=== PATIENT | female | born 1990 | race Caucasian/White ===

== ENCOUNTER 2016-10-03 20:25 | Emergency (ER) | payer OTHER ==
[2016-10-03 20:31] VITALS: BP 124/73
--- NOTE | 2016-10-03 20:36 | ER Document Report ---
ED Medical Screen (RME) - General Stated Complaint: CAT BITE Notes: Patient was bitten by a cat a couple weeks ago, and is undergoing series of rabies injections. Patient has been getting them at [facility], but they are out so patient was referred here for dose due on day 14. I have greeted and performed a rapid initial assessment of this patient. A comprehensive ED assessment and evaluation of the patient, analysis of test results and completion of the medical decision making process will be conducted by additional ED providers. TRAVEL OUTSIDE OF THE [place] IN LAST 30 DAYS: No - Related Data Allergies/Adverse Reactions: No Known Allergies Allergy (Unverified 05/02/14 20:34) Physical Exam - Vital signs Vitals: Temp Pulse Resp BP Pulse Ox 98.5 F 75 18 124/73 96 10/03/16 20:29 10/03/16 20:29 10/03/16 20:29 10/03/16 20:29 10/03/16 20:29 - Skin Notes: No signs of infection noted to left index finger were Bite was. Also has some healed areas to right wrist. Course - Vital Signs Vital signs: Temp Pulse Resp BP Pulse Ox 98.5 F 75 18 124/73 96 10/03/16 20:29 10/03/16 20:29 10/03/16 20:29 10/03/16 20:29 10/03/16 20:29
[2016-10-03] MEDS ORDERED: RABIES VACCINE (PCEC)/PF 2.5 UNIT/1 ML KIT IM ONE (23:40)
--- NOTE | 2016-10-03 23:45 | ER Document Report ---
ED Animal Bite - General Chief Complaint: Cat Bite Stated Complaint: CAT BITE Time seen by provider: 23:40 Mode of Arrival: Ambulatory Information source: Patient TRAVEL OUTSIDE OF THE [place] IN LAST 30 DAYS: No - HPI Patient complains to provider of: rabies vaccine #4, Cat bite to left hand, right wrist Location of injury: [place] Severity of injury: Bitten Onset: Other - 09/17/2016 Quality of pain: No pain Type of animal: Cat Appearance of animal: Appeared well Animal's immunizations: Unknown Animal captured or known: No Notes: Patient is a 26-year-old female who presents to the emergency room requesting rabies vaccine #4, states she was previously treated at [facility] on 2016, and received her tetanus vaccination, as well as rabies immunoglobulin and vaccine, she is also had rabies vaccine #2 and #3 on days 3 and 7, however when she reported to [facility] to get her fourth shot in the series today and she was told that they have run out of the vaccine, therefore she came to this emergency room for treatment, she recently finished a course of antibiotics as well, she has no complaints as far as the bites are concerned, denies any other injury or concerns - Related Data Allergies/Adverse Reactions: No Known Allergies Allergy (Unverified 05/02/14 20:34) Past Medical History - General Information source: Patient - Social History Smoking Status: Current Every Day Smoker Chew tobacco use (# tins/day): No Frequency of alcohol use: None Drug Abuse: None Family History: Reviewed & Not Pertinent Patient has suicidal ideation: No Patient has homicidal ideation: No Renal/ Medical History: Denies: Hx Peritoneal Dialysis Review of Systems - Review of Systems Constitutional: No symptoms reported EENT: No symptoms reported Cardiovascular: No symptoms reported Respiratory: No symptoms reported Gastrointestinal: No symptoms reported Genitourinary: No symptoms reported Female Genitourinary: No symptoms reported Musculoskeletal: No symptoms reported Skin: See HPI Hematologic/Lymphatic: No symptoms reported Neurological/Psychological: No symptoms reported -: Yes All other systems reviewed and negative Physical Exam - Vital signs Vitals: Temp Pulse Resp BP Pulse Ox 98.5 F 75 18 124/73 96 10/03/16 20:29 10/03/16 20:29 10/03/16 20:29 10/03/16 20:29 10/03/16 20:29 Interpretation: Normal - Notes Notes: - General General appearance: Appears well, Alert In distress: None - HEENT Head: Normocephalic, Atraumatic Eyes: Normal Conjunctiva: Normal Extraocular movements intact: Yes Eyelashes: Normal Pupils: PERRL - Respiratory Respiratory status: No respiratory distress - Cardiovascular Rhythm: Regular - Abdominal Inspection: Normal - Back Back: Normal - Extremities General upper extremity: Patient with slight ecchymosis to the left second finger, and right wrist, with scabbed puncture wounds, no swelling, minimal tenderness, distal sensation and motor is intact with 2+ radial pulses bilaterally and brisk capillary refill General lower extremity: Normal inspection - Neurological Neuro grossly intact: Yes Orientation: AAOx4 [place] Coma Scale Eye Opening: Spontaneous [place] Coma Scale Verbal: Oriented [place] Coma Scale Motor: Obeys Commands Kaylen Coma Scale Total: 15 - Psychological Associated symptoms: Normal affect, Normal mood - Skin Skin Temperature: Warm Skin Moisture: Dry Skin Color: Normal Course - Re-evaluation Re-evalutation: 10/03/16 23:46 Patient was administered rabies vaccine, advised to follow-up at [facility] as needed, return if symptoms worsen, patient acknowledges understanding and agreement with this plan - Vital Signs Vital signs: Temp Pulse Resp BP Pulse Ox 98.5 F 75 18 124/73 96 10/03/16 20:29 10/03/16 20:29 10/03/16 20:29 10/03/16 20:29 10/03/16 20:29 Discharge - Discharge Clinical Impression: Cat bite of finger Qualifiers: Encounter type: initial encounter Qualified Code(s): S61.259A - Open bite of unspecified finger without damage to nail, initial encounter; W55.01XA - Bitten by cat, initial encounter Cat bite of wrist Qualifiers: Encounter type: initial encounter Laterality: right Qualified Code(s): S61.551A - Open bite of right wrist, initial encounter; W55.01XA - Bitten by cat , initial encounter Condition: Stable Disposition: HOME, SELF-CARE Instructions: Animal Bites ([facility]), Rabies Prophyllaxis ([facility]) Additional Instructions: Follow up with your primary care provider in one to 2 days. Return to the emergency room immediately if symptoms worsen or any additional concerns. Forms: Smoking Cessation Education
== END 2016-10-04 00:36 | disposition home or self-care (01) ==
LOC: ER 20:25
DX: S61.551A Open bite of right wrist, initial encounter (principal); S61.259A Open bite of unspecified finger without damage to nail, initial encounter; W55.01XA Bitten by cat, initial encounter; Z29.14 Encounter for prophylactic rabies immune globulin
CPT/HCPCS: 90471; 90675; 99281